=== PATIENT | female | born 1960 | race Two or more races ===

== ENCOUNTER 2024-10-08 05:45 | Emergency (ER) | payer MEDICAID ==
[~2024-10-08] VITALS: Ht 170.2 cm; Wt 58.9 kg
[2024-10-08 05:57] VITALS: BP 136/74; PULSE 90; RESP 20; TEMP 98.6; O2SAT 97
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
--- NOTE | 2024-10-08 08:01 | DVH ---
EXAM: XY FACIAL BONES COMPLETE CLINICAL INDICATION: Trauma TECHNIQUE: XY FACIAL BONES COMPLETE Comparison: None Findings: On the lateral view the distal nasal bone is not seen. Bony west of the orbits and mandibl e are intact. IMPRESSION: 1. Nasal bone fracture versus surgical resection
--- NOTE | 2024-10-08 08:03 | DVH ---
CT brain without contrast CLINICAL INDICATION: altered FINDINGS: The study was performed in a multidetector scanner. This study performed taking axial image s from the skull base up to the vertex. Both brain and bone windows are photographed. Dose lowering techniques have been used including automated exposure control and adjustment of mA and /or KV according to patient size. No intraparenchymal hemorrhage or edema. Faint low-density changes in the periventricular white ant er No hydrocephalus. No midline shift. There is an air-fluid level in the right maxillary sinus. IMPRESSION: 1. No acute intracranial pathology. 2. Right maxillary sinusitis Computed Tomographic Radiation Dosimetry Report: Total CTDI vol = 56.41mGy Total DLP = 998.91mGy-cm A ll CT scans at this medical facility are performed using dose modulation techniques as appropriate to a performed exam including the following: Automated exposure control was utilized; adjustment of the MA and/or KvP according to patient size; and use of iterative reconstruction technique.
[2024-10-08] MEDS ORDERED: AMOX500T86 PO (09:18)
== END 2024-10-08 09:24 | disposition home or self-care (01) ==
LOC: ER 05:45
DX: S09.8XXA Other specified injuries of head, initial encounter (principal); J01.90 Acute sinusitis, unspecified; F17.210 Nicotine dependence, cigarettes, uncomplicated; H57.13 Ocular pain, bilateral; Y08.89XA Assault by other specified means, initial encounter; Y93.89 Activity, other specified; Y92.89 Other specified places as the place of occurrence of the external cause; Y99.8 Other external cause status
CPT/HCPCS: 70140; 70450